=== PATIENT | male | born 1960 | race Caucasian/White ===

== ENCOUNTER 2023-01-26 09:56 | Day surgery (SDC) | payer OTHER ==
[2023-01-21 11:37] VITALS: BMI 24.3
[~2023-01-26 09:56] MED LIST: LACTATED RINGERS 1,000 ML IV SCH; MOXIFLOXACIN HCL 0.5% DROPS 3 ML BTL OP PRN; TETRACAINE 0.5% OPHTH (PF) DROPS 4 ML BTL OP PRN; TIMOLOL 0.5% OPHTH DROPS 5 ML BTL OP PRN
[2023-01-26] MEDS: CYCLOPENTOLATE 1% OPHTH SOLN 2 ML BTL OP PRN ×3 (10:05→10:20)
[2023-01-26] MEDS: PHENYLEPHRINE 2.5% OPHTH DRP 2ML OP PRN ×3 (10:08→10:25)
[2023-01-26 10:34] VITALS: TEMP 97
[2023-01-26] MEDS ORDERED: MIDAZOLAM 2 MG/2 ML VIAL ONE (11:05)
[2023-01-26] MEDS ORDERED: BALANCED SALT IRRIG SOLN COMB2 15 ML IRRIG.SOLN INTRAOCULA ONE (11:10)
[2023-01-26] MEDS ORDERED: DUOVISC KIT (GREEN BOX) INTRAOCULA ONE (11:11)
[2023-01-26] MEDS ORDERED: LIDOCAINE 1% (PF) 10MG/ML VIAL MISCELLANE ONE (11:11)
[2023-01-26] MEDS ORDERED: EPINEPHrine (PF) 0.3 ML in BALANCED SALT IRRIG SOLN COMB2 500 ML IRRIGATION ONE (11:13)
[2023-01-26] MEDS ORDERED: TRYPAN BLUE 0.06% SYRINGE 0.5 ML SYRINGE MISCELLANE ONE (11:21)
--- NOTE | 2023-01-26 11:44 | P.OP ---
Date of Procedure: 01/26/23 Preoperative Diagnosis: mature cataract Postoperative Diagnosis: same Procedure(s) Performed: PIOL, OS Implants: MX60E 20.50 Anesthesia: MAC Surgeon: Tim Curtis Pathology: none sent Condition: stable Disposition: same day Indications for Procedure: no vision Operative Findings: no complications
[2023-01-26 11:47] VITALS: RESP 16
[2023-01-26] MEDS ORDERED: hydrALAZINE HCL 20 MG/ML 1 ML VIAL ONE (12:16)
[2023-01-26] MEDS ORDERED: hydrALAZINE HCL 20 MG/ML 1 ML VIAL IVP ONE (12:20)
[2023-01-26 12:42] VITALS: PULSE 72
[2023-01-26 13:21] VITALS: BP 166/92
--- NOTE | 2023-01-26 14:26 | OP ---
OPERATIVE REPORT DATE OF SERVICE : 01/26/2023 PROCEDURES PERFORMED: Phacoemulsification of cataract and intraocular lens implant of the left eye. PREOPERATIVE DIAGNOSIS: Mature cataract. POSTOPERATIVE DIAGNOSIS: Mature cataract. ANESTHESIA: Topical. ESTIMATED BLOOD LOSS: None. SPECIMEN TAKEN: None. NARRATIVE: After obtaining the appropriate consent, the patient was brought to the operating room. There he was placed on cardiac monitoring and prepped and draped in the usual sterile manner. He was approached from his left temporal side and at the 5 o'clock position, an MVR blade was used to create a paracentesis port. Through this opening, 1% Xylocaine MPF 50:50 mix with balanced salt solution was injected into the anterior chamber. This was followed by a Trypan blue which was allowed to stay in the eye for 2 minutes. This was irrigated away and replaced with Viscoat. At the 3 o'clock position, a 2.5 mm keratome was used to create a self-sealing corneal flap incision. Through this opening, a cystotome was introduced to begin a continuous tear capsulorrhexis which was completed using the Utrata forceps. Hydrodissection and hydrodelineation of the lens were accomplished with balanced salt solution. Phacoemulsification lens utilizing phacochop was accomplished in 14.85 seconds with 14% power. Additional Xylocaine MPF was instilled in the anterior chamber. This was followed by removal of the remaining cortical material under irrigation and aspiration as well as careful polishing of the posterior capsule in the capsule vacuum mode probe. Provisc was instilled into the capsular bag and a [employer]ch [employer] MX60E 20.5 diopter posterior chamber intraocular lens was inserted into the capsular bag without difficulty. The remaining viscoelastic was removed from in and around the intraocular lens as well as the anterior chamber. The eye was then brought to normal intraocular pressure through the paracentesis port and all incisions were confirmed watertight. He then received 2 drops of 0.5% timolol followed by 2 drops of 0.5% moxifloxacin. He was then lightly patched and shielded in the usual manner. There were no complications from the procedure. He tolerated the procedure well and was returned to outpatient recovery in good condition. MMODL / IJN: [id number] /
== END 2023-01-26 13:22 | disposition home or self-care (01) ==
LOC: OR 09:56
PROVIDERS: ATTEND Ophthalmology
DX: H25.12 Age-related nuclear cataract, left eye (principal); I10 Essential (primary) hypertension; E78.5 Hyperlipidemia, unspecified; F17.210 Nicotine dependence, cigarettes, uncomplicated

== ENCOUNTER 2023-02-16 08:59 | Day surgery (SDC) | payer OTHER ==
[2023-02-15 10:45] VITALS: BMI 23.6
[~2023-02-16 08:59] MED LIST changes: -MOXIFLOXACIN HCL 0.5% DROPS 3 ML BTL OP PRN; -TIMOLOL 0.5% OPHTH DROPS 5 ML BTL OP PRN
[2023-02-16] MEDS: CYCLOPENTOLATE 1% OPHTH SOLN 2 ML BTL OP PRN ×3 (09:26→09:38)
[2023-02-16] MEDS: PHENYLEPHRINE 2.5% OPHTH DRP 2ML OP PRN ×3 (09:29→09:41)
[2023-02-16 09:31] VITALS: TEMP 97
[2023-02-16] MEDS ORDERED: fentaNYL (PF) 50 MCG/ML 2 ML AMP ONE (10:06)
[2023-02-16] MEDS ORDERED: MIDAZOLAM 2 MG/2 ML VIAL ONE (10:06)
[2023-02-16] MEDS ORDERED: EPINEPHrine (PF) 0.3 ML in BALANCED SALT IRRIG SOLN COMB2 500 ML IRRIGATION ONE (10:16)
[2023-02-16] MEDS ORDERED: BALANCED SALT IRRIG SOLN COMB2 15 ML IRRIG.SOLN INTRAOCULA ONE ×2 (10:19→10:24)
[2023-02-16] MEDS ORDERED: DUOVISC KIT (GREEN BOX) INTRAOCULA ONE ×2 (10:19→10:24)
[2023-02-16] MEDS ORDERED: TRYPAN BLUE 0.06% SYRINGE 0.5 ML SYRINGE INTRAOCULA ONE ×2 (10:20→10:24)
[2023-02-16] MEDS ORDERED: LIDOCAINE 1% (PF) 10MG/ML VIAL MISCELLANE ONE ×2 (10:20→10:24)
[2023-02-16] MEDS: TIMOLOL 0.5% OPHTH DROPS 5 ML BTL OP PRN ×2 (10:21→10:24)
[2023-02-16] MEDS: MOXIFLOXACIN HCL 0.5% DROPS 3 ML BTL OP PRN ×2 (10:21→10:24)
--- NOTE | 2023-02-16 10:44 | P.OP ---
Date of Procedure: 02/16/23 Preoperative Diagnosis: mature cataract Postoperative Diagnosis: same Procedure(s) Performed: PIOL, OD Implants: MX60E 22.50 Anesthesia: MAC Surgeon: Tim Curtis Pathology: none sent Condition: stable Disposition: same day Indications for Procedure: blurry Operative Findings: no complications
[2023-02-16 11:12] VITALS: BP 158/88; PULSE 63; RESP 18
[2023-02-16] MEDS ORDERED: LIDOCAINE 2% INJ 20 MG/ML (2 ML VIAL) ONE (11:22)
[2023-02-16] MEDS ORDERED: PROPOFOL 10 MG/ML 20 ML VIAL IV ONE (11:22)
--- NOTE | 2023-02-17 09:36 | OP ---
OPERATIVE REPORT DATE OF SERVICE : 02/16/2023 PROCEDURE PERFORMED: Phacoemulsification of cataract and intraocular lens implant of the right eye. PREOPERATIVE DIAGNOSIS: Mature cataract. POSTOPERATIVE DIAGNOSIS: Mature cataract. ANESTHESIA: Topical. ESTIMATED BLOOD LOSS: None. SPECIMEN TAKEN: None. NARRATIVE: After obtaining the appropriate consent, the patient was brought to the operating room. There, he was placed under cardiac monitoring, prepped and draped in the usual sterile manner. He was approached from his right temporal side at the 11 o'clock position. An MVR blade was used to create a paracentesis port. Through this opening, 1% Xylocaine MPF 50:50 mixed with balanced salt solution was injected into the anterior chamber. This was followed by Trypan blue which was allowed to stay in the eye for about 2 minutes. This was irrigated away with balanced salt solution and replaced with Viscoat to stabilize the anterior chamber. At the 9 o'clock position, a 2.5 mm keratome was used to create a self-sealing corneal flap incision. Through this opening, a cystotome was introduced to begin a continuous tear capsulorrhexis. Moderate amount of "lens milk" was begun to be released. However, the Trypan staining of the anterior capsule facilitated clear site of the tissue that needed to be removed during the capsulorrhexis. Micro Utrata forceps were able to grasp the edge of the anterior capsule which was completed without any difficulty. Hydrodissection of the lens from the posterior capsule was accomplished with balanced salt solution. This was followed by phacoemulsification of the lens utilizing phaco chop in 29.83 seconds at 11.5% power. Due to the appearance of extremely thin capsular tissue, both anterior as well as posterior, very careful removal of the remaining cortex was accomplished under irrigation and aspiration as well as limited capsule polishing of the posterior capsule. Provisc was then used to stabilize the capsular bag, and a [employer]ch [employer] Lomb MX60E 22.5 diopter was then inserted into the capsular bag without difficulty. The remaining viscoelastic was then removed from in and around the intraocular lens under irrigation and aspiration, and the eye was brought to normal intraocular pressure through the paracentesis port with balanced salt solution. He then received 2 drops of 0.5% timolol followed by 2 drops of 0.5% moxifloxacin and then was lightly patched and shielded in the usual manner. There were no complications from the procedure. He tolerated the procedure well and was returned to outpatient recovery in good condition. MMMORENITA / CHANDRAKANTN: [id number] /
== END 2023-02-16 11:15 | disposition home or self-care (01) ==
LOC: OR 08:59
PROVIDERS: ATTEND Ophthalmology
DX: H25.011 Cortical age-related cataract, right eye (principal); H52.13 Myopia, bilateral; H43.812 Vitreous degeneration, left eye; I10 Essential (primary) hypertension; E78.5 Hyperlipidemia, unspecified; Z87.891 Personal history of nicotine dependence; Z96.1 Presence of intraocular lens; Z79.899 Other long term (current) drug therapy